=== PATIENT | male | born 1995 | race African-American/Black ===

== ENCOUNTER 2023-04-19 16:50 | Emergency (ER) | payer MEDICAID, OTHER ==
[~2023-04-19] VITALS: Ht 152.4 cm; Wt 73.0 kg
[2023-04-19] MEDS ORDERED: SODIUM CHLORIDE 0.9% 1,000 ML IV ONE (17:15)
[2023-04-19] MEDS ORDERED: ALBUTEROL (0.083%) 2.5MG/3ML NEB HHN STA (17:20)
[2023-04-19] MEDS ORDERED: KETOROLAC 15MG/ML VIAL IV ONE (17:30)
[2023-04-19 17:50] LABS: BASOPHILS % 0.4 % (0.0-2.0); EOSINOPHILS % 0.7 % (0.0-5.0); HEMOGLOBIN. 14.7 g/dL (14.0-18.0); MEAN CORPUSCULAR HEMOGLOBIN 33.3 pg (28.0-32.0); MEAN CORPUSCULAR HGB CONC 34.2 g/dL (31.0-37.0); MEAN CORPUSCULAR VOLUME 97.5 fL (80.0-94.0); MONOCYTES % 10.8 % (2.0-8.0); NEUTROPHILS % 78.1 % (40.0-76.0); PLATELET 218 x1000/uL (130-400); RED BLOOD CELL COUNT 4.41 mill/uL (4.7-6.1); RED CELL DISTRIBUTION WIDTH 12.7 % (11.6-14.6); WHITE BLOOD COUNT 7.6 x1000/uL (4.5-11.0)
[2023-04-19 17:56] LABS: CHLORIDE 106 mEq/L (98-107); INDEX HEMOLYSI 1 (1-3); INDEX ICTERIC 1 (1-4); INDEX LIPEMIC 1 (1-3); POTASSIUM 3.5 mEq/L (3.5-5.1); SODIUM 135 mEq/L (136-145)
[2023-04-19 17:59] LABS: ALBUMIN 3.8 g/dL (3.4-5.0); CALCIUM 8.7 mg/dL (8.5-10.1); CARBON DIOXIDE 23 mEq/L (21-32); GLUCOSE 74 mg/dL (70-105); UREA NITROGEN BLOOD 11 mg/dL (7-21)
[2023-04-19 18:07] LABS: ALANINE AMINOTRANSFERASE 36 IU/L (13-61); ASPARTATE AMINOTRANSFERASE 25 IU/L (15-37); BILIRUBIN TOTAL 0.5 mg/dL (0.1-1.0); CREATININE 0.9 mg/dL (0.6-1.3); PHENYTOIN 0.7 ug/mL (10-20); PROTEIN TOTAL 8.2 g/dL (6.0-8.3)
[2023-04-19] MEDS ORDERED: ONDANSETRON HCL 4MG/2ML INJ IV ONE (18:30)
[2023-04-19] MEDS ORDERED: PHENYTOIN SODIUM 1,000 MG in SODIUM CHLORIDE 0.9% 100 ML IV ONE (18:30)
[2023-04-19] MEDS ORDERED: PHEN100C4 MT (18:38)
[2023-04-19] MEDS ORDERED: ONDA4TAB11 PO (18:38)
[2023-04-19] MEDS ORDERED: ALBUTEROL (0.083%) 2.5MG/3ML NEB HHN NR (21:42)
[2023-04-19 21:50] VITALS: PULSE 97; RESP 20; O2SAT 98
[2023-04-19 22:31] VITALS: BP 105/64; PULSE 94; RESP 22; TEMP 97.6
== END 2023-04-19 22:33 | disposition home or self-care (01) ==
LOC: ER 16:50
DX: R56.9 Unspecified convulsions (principal); M79.10 Myalgia, unspecified site
CPT/HCPCS: 80053; 80185; 85025; 36415; 94640; 93005; 96365; 96366; 96375; 99284; J1885; J2405; J1165; Z7610 ×7; J7050; J7030

== ENCOUNTER 2023-12-02 15:11 | Emergency (ER) | payer MEDICAID ==
[~2023-12-02] VITALS: Ht 170.2 cm; Wt 75.0 kg
[~2023-12-02 15:11] MED LIST: ONDA4TAB11 PO; PHEN100C4 MT
[2023-12-02 15:23] VITALS: O2SAT 98
[2023-12-02] MEDS: IBUPROFEN 600MG TABLET PO ONE (16:15)
[2023-12-02] MEDS: ACETAMINOPHEN 325MG TABLET PO ONE (16:15)
[2023-12-02] MEDS ORDERED: IBUP-1523 MT (21:57)
[2023-12-02] MEDS ORDERED: TOPUD MT (21:57)
[2023-12-02 22:05] VITALS: BP 134/77; PULSE 76; RESP 18; TEMP 98.4
== END 2023-12-02 22:04 | disposition home or self-care (01) ==
LOC: ER 15:21
DX: S63.681A Other sprain of right thumb, initial encounter (principal); Z98.890 Other specified postprocedural states; X58.XXXA Exposure to other specified factors, initial encounter; Y93.89 Activity, other specified; Y92.89 Other specified places as the place of occurrence of the external cause; Y99.8 Other external cause status
CPT/HCPCS: 73130; 99283